=== PATIENT | female | born 1955 | race Caucasian/White ===

== ENCOUNTER 2016-06-20 05:39 | Emergency (ER) | payer BC ==
[~2016-06-20] VITALS: Ht 167.6 cm; Wt 76.7 kg
[2016-06-20 05:45] VITALS: BP 125/72; PULSE 98; RESP 14; TEMP 98.5; O2SAT 98
[2016-06-20] MEDS ORDERED: LEXA20TA PO (06:30)
[2016-06-20] MEDS ORDERED: SIMV40TA PO (06:30)
[2016-06-20] MEDS ORDERED: LEVO150T7 PO (06:30)
[2016-06-20] MEDS ORDERED: ALPR.5 PO (06:30)
[2016-06-20] MEDS ORDERED: ANUS25SU RECTAL (06:30)
[2016-06-20] MEDS ORDERED: SPIR25TA3 PO (06:30)
[2016-06-20] MEDS ORDERED: MELO-1 PO (06:30)
[2016-06-20] MEDS ORDERED: GLYC1TAB17 PO (06:30)
[2016-06-20] MEDS ORDERED: HYDR-2376 PO (06:30)
[2016-06-20] MEDS ORDERED: LISI-515 PO (06:30)
--- NOTE | 2016-06-20 07:01 | PD ---
HPI Chief Complaint: GI Complaint Time Seen by Provider: 06:54 Travel History International Travel<30 days: No Contact w/Intl Traveler<30days: No Traveled to known affect area: No History of Present Illness HPI The patient is a 60-year-old female that complains of hemorrhoidal bleeding. She has a history of hemorrhoids and has cortisone suppositories for this given by her colorectal surgeon. She will see her colorectal surgeon next month. She has minimal pain and no fever. PFSH Past Medical History Arthritis: Yes Diminished Hearing: No Hypertension: Yes Medical other: Yes (IBS, EDEMA) Thyroid Disease: Yes Tetanus Vaccination: Unknown Influenza Vaccination: Yes ?: Not Menopausal: Yes : 2 Para: 2 Past Surgical History Abdominal Surgery: Yes (UMBILICAL HERNIA) Cholecystectomy: Yes Social History Alcohol Use: No Tobacco Use: Yes (1 PPD) Substance Use: No Allergies-Medications (Allergen,Severity, Reaction): Coded Allergies: Penicillin (Verified Allergy, Severe, Swelling, 06/20/16) Reported Meds & Prescriptions Reported Meds & Active Scripts Active Reported Lisinopril 20 Mg Tab 20 Mg PO DAILY Spironolactone-Hydrochlorothiazide 25-25 Mg Tab 1 Tab PO DAILY Lexapro (Escitalopram Oxalate) 20 Mg Tab 20 Mg PO DAILY Xanax (Alprazolam) 0.5 Mg Tab 0.5 Mg PO Q4H PRN Levothyroxine (Levothyroxine Sodium) 150 Mcg Tab 150 Mcg PO DAILY Simvastatin 40 Mg Tab 40 Mg PO HS Anusol-Hc Supp (Hydrocortisone Supp) 25 Mg Supp 25 Mg RECTAL BID Glycopyrrolate 1 Mg Tab 1 Mg PO BID Meloxicam 15 Mg Tab 15 Mg PO DAILY Hydrocodone-Acetaminophen 7.5-300 Mg Tab 1 Tab PO Q4H PRN Review of Systems Except as stated in HPI: all other systems reviewed are Neg Physical Exam Narrative GENERAL: Well-nourished, well-developed patient who does not appear anemic and no apparent distress. Her vital signs are normal. SKIN: Focused skin assessment warm/dry. HEAD: Normocephalic. EYES: No scleral icterus. No injection or drainage. NECK: Supple, trachea midline. No JVD or lymphadenopathy. CARDIOVASCULAR: Regular rate and rhythm without murmurs, gallops, or rubs. RESPIRATORY: Breath sounds equal bilaterally. No accessory muscle use. GASTROINTESTINAL: Abdomen soft, non-tender, nondistended. No guarding or rebound is present. MUSCULOSKELETAL: No cyanosis, or edema. BACK: Nontender without obvious deformity. No CVA tenderness. RECTAL EXAM: No masses or tenderness, stool is absent from the rectum. No blood is seen around the hemorrhoid or within the rectum. The hemorrhoid is one half centimeter in diameter and no evidence of bleeding is seen. The hemorrhoid is on the left side. Data Data Last Documented VS Vital Signs Date Time Temp Pulse Resp B/P Pulse Ox O2 Delivery O2 Flow Rate FiO2 06/20/16 06:06 20 06/20/16 05:45 98.5 98 125/72 98 Room Air MDM Medical Decision Making Medical Screen Exam Complete: Yes Emergency Medical Condition: Yes Medical Record Reviewed: Yes Differential Diagnosis Bleeding hemorrhoid, thrombosed hemorrhoid, GI bleeding Narrative Course There is no bleeding with a hemorrhoid. The hemorrhoid shows minimal discomfort. Apparently, the hemorrhoid quit bleeding. At this point the patient said simply follow up with her colorectal surgeon in [place]. Diagnosis Primary Impression: Hemorrhoid Additional Instructions: As we discussed, the hemorrhoid quit bleeding. Follow-up with your colorectal surgeon in [place]. Disposition: 01 DISCHARGE HOME Condition: Stable Vinny Lyn MD Jun 20, 2016 07:01
== END 2016-06-20 07:16 | disposition home or self-care (01) ==
LOC: PHED 05:39
DX: K64.9 Unspecified hemorrhoids (principal); I10 Essential (primary) hypertension; E07.9 Disorder of thyroid, unspecified; K58.9 Irritable bowel syndrome, unspecified; F17.210 Nicotine dependence, cigarettes, uncomplicated
CPT/HCPCS: 99282